=== PATIENT | male | born 1945 | race Caucasian/White ===

== ENCOUNTER 2017-09-03 02:19 | Outpatient (CLI) | payer MEDICARE ==
[~2017-09-03 02:19] MED LIST: ALEN70TA48 PO; AMLO10TA5 PO; CHOL200035 PO; INSU100V36 SQ; LEVO150T73 PO; LISI40TA4 PO; SIMV20TA5 PO; UBIQ100C3 PO
== END 2017-09-03 23:59 | disposition home or self-care (01) ==
LOC: DIABETIC 02:19
PROVIDERS: ATTEND Specialist
DX: E11.65 Type 2 diabetes mellitus with hyperglycemia (principal); I10 Essential (primary) hypertension
CPT/HCPCS: G0108

== ENCOUNTER 2017-09-08 10:44 | Day surgery (SDC) | payer MEDICARE | END 2017-09-08 12:15 | disposition home or self-care (01) | LOC: WOUND CARE 10:44 | PROVIDERS: ATTEND Surgery | DX: T81.89XD Other complications of procedures, not elsewhere classified, subsequent encounter (principal); L98.421 Non-pressure chronic ulcer of back limited to breakdown of skin; I10 Essential (primary) hypertension; Z72.89 Other problems related to lifestyle; Y83.8 Other surgical procedures as the cause of abnormal reaction of the patient, or of later complication, without mention of misadventure at the time of the procedure | CPT/HCPCS: 11042; 36416; 82948; A6021; A6212; 88305 ==

== ENCOUNTER 2017-09-17 10:23 | Day surgery (SDC) | payer MEDICARE ==
[2017-09-17] MEDS ORDERED: LIDOcaine 2% 5ml jelly ONE (11:18)
== END 2017-09-17 11:45 | disposition home or self-care (01) ==
LOC: WOUND CARE 10:23
PROVIDERS: ATTEND Surgery
DX: T81.89XD Other complications of procedures, not elsewhere classified, subsequent encounter (principal); L98.421 Non-pressure chronic ulcer of back limited to breakdown of skin; I10 Essential (primary) hypertension; H40.89 Other specified glaucoma; Z72.89 Other problems related to lifestyle; Y83.8 Other surgical procedures as the cause of abnormal reaction of the patient, or of later complication, without mention of misadventure at the time of the procedure
CPT/HCPCS: 11042; 36416; 82948; A6021; A6212

== ENCOUNTER 2017-09-24 10:46 | Day surgery (SDC) | payer MEDICARE ==
[2017-09-24] MEDS ORDERED: LIDOcaine 2% 5ml jelly ONE (11:16)
== END 2017-09-24 11:56 | disposition home or self-care (01) ==
LOC: WOUND CARE 10:46
PROVIDERS: ATTEND Surgery
DX: T81.89XD Other complications of procedures, not elsewhere classified, subsequent encounter (principal); E11.622 Type 2 diabetes mellitus with other skin ulcer; L98.421 Non-pressure chronic ulcer of back limited to breakdown of skin; E11.39 Type 2 diabetes mellitus with other diabetic ophthalmic complication; H40.89 Other specified glaucoma; I10 Essential (primary) hypertension; Z72.89 Other problems related to lifestyle; Z98.49 Cataract extraction status, unspecified eye; Y83.8 Other surgical procedures as the cause of abnormal reaction of the patient, or of later complication, without mention of misadventure at the time of the procedure
CPT/HCPCS: 17250; 36416; 82948; A6021; A6212

== ENCOUNTER 2017-10-01 11:07 | Day surgery (SDC) | payer MEDICARE ==
[2017-10-01] MEDS ORDERED: LIDOcaine 2% 5ml jelly ONE (11:23)
== END 2017-10-01 11:40 | disposition home or self-care (01) ==
LOC: WOUND CARE 11:07
PROVIDERS: ATTEND Surgery
DX: T81.89XD Other complications of procedures, not elsewhere classified, subsequent encounter (principal); E11.622 Type 2 diabetes mellitus with other skin ulcer; L98.421 Non-pressure chronic ulcer of back limited to breakdown of skin; E11.39 Type 2 diabetes mellitus with other diabetic ophthalmic complication; H40.89 Other specified glaucoma; I10 Essential (primary) hypertension; Z72.89 Other problems related to lifestyle; Z98.49 Cataract extraction status, unspecified eye; Y83.8 Other surgical procedures as the cause of abnormal reaction of the patient, or of later complication, without mention of misadventure at the time of the procedure
CPT/HCPCS: 11042; 36416; 82948; A6212

== ENCOUNTER 2017-10-09 10:37 | Day surgery (SDC) | payer MEDICARE ==
[2017-10-09] MEDS ORDERED: LIDOcaine 2% 5ml jelly ONE (11:28)
== END 2017-10-09 11:58 | disposition home or self-care (01) ==
LOC: WOUND CARE 10:37
PROVIDERS: ATTEND Surgery
DX: T81.89XD Other complications of procedures, not elsewhere classified, subsequent encounter (principal); E11.622 Type 2 diabetes mellitus with other skin ulcer; L98.421 Non-pressure chronic ulcer of back limited to breakdown of skin; E11.39 Type 2 diabetes mellitus with other diabetic ophthalmic complication; H40.89 Other specified glaucoma; I10 Essential (primary) hypertension; Z72.89 Other problems related to lifestyle; Z98.49 Cataract extraction status, unspecified eye; Y83.8 Other surgical procedures as the cause of abnormal reaction of the patient, or of later complication, without mention of misadventure at the time of the procedure
CPT/HCPCS: 11042; 36416; 82948; A6021; A6212

== ENCOUNTER 2017-10-15 10:35 | Day surgery (SDC) | payer MEDICARE ==
[2017-10-15] MEDS: LIDOcaine 2% 5ml jelly ONE (12:11)
== END 2017-10-15 11:50 | disposition home or self-care (01) ==
LOC: WOUND CARE 10:35
PROVIDERS: ATTEND Surgery
DX: T81.89XD Other complications of procedures, not elsewhere classified, subsequent encounter (principal); E11.622 Type 2 diabetes mellitus with other skin ulcer; L98.421 Non-pressure chronic ulcer of back limited to breakdown of skin; E11.39 Type 2 diabetes mellitus with other diabetic ophthalmic complication; H40.89 Other specified glaucoma; I10 Essential (primary) hypertension; Z72.89 Other problems related to lifestyle; Z98.49 Cataract extraction status, unspecified eye; Y83.8 Other surgical procedures as the cause of abnormal reaction of the patient, or of later complication, without mention of misadventure at the time of the procedure
CPT/HCPCS: 36416; 82948; 97597; A6021; A6212

== ENCOUNTER 2017-10-23 10:35 | Day surgery (SDC) | payer MEDICARE ==
[2017-10-23] MEDS ORDERED: LIDOcaine 2% 5ml jelly ONE (10:55)
== END 2017-10-23 11:44 | disposition home or self-care (01) ==
LOC: WOUND CARE 10:35
PROVIDERS: ATTEND Surgery
DX: T81.89XD Other complications of procedures, not elsewhere classified, subsequent encounter (principal); E11.622 Type 2 diabetes mellitus with other skin ulcer; L98.421 Non-pressure chronic ulcer of back limited to breakdown of skin; E11.39 Type 2 diabetes mellitus with other diabetic ophthalmic complication; H40.89 Other specified glaucoma; I10 Essential (primary) hypertension; Z72.89 Other problems related to lifestyle; Z98.49 Cataract extraction status, unspecified eye; Y83.8 Other surgical procedures as the cause of abnormal reaction of the patient, or of later complication, without mention of misadventure at the time of the procedure
CPT/HCPCS: 11042; 36416; 82948; A6021; A6212

== ENCOUNTER 2017-10-29 10:29 | Day surgery (SDC) | payer MEDICARE | END 2017-10-29 11:27 | disposition home or self-care (01) | LOC: WOUND CARE 10:29 | PROVIDERS: ATTEND Surgery | DX: T81.89XD Other complications of procedures, not elsewhere classified, subsequent encounter (principal); E11.622 Type 2 diabetes mellitus with other skin ulcer; L98.421 Non-pressure chronic ulcer of back limited to breakdown of skin; E11.39 Type 2 diabetes mellitus with other diabetic ophthalmic complication; H40.89 Other specified glaucoma; I10 Essential (primary) hypertension; Z72.89 Other problems related to lifestyle; Z98.49 Cataract extraction status, unspecified eye; Y83.8 Other surgical procedures as the cause of abnormal reaction of the patient, or of later complication, without mention of misadventure at the time of the procedure | CPT/HCPCS: 11042; 36416; 82948; A6021; A6212 ==

== ENCOUNTER 2017-11-05 10:34 | Day surgery (SDC) | payer MEDICARE ==
[2017-11-05] MEDS ORDERED: LIDOcaine 2% 5ml jelly ONE (11:49)
== END 2017-11-05 12:12 | disposition home or self-care (01) ==
LOC: WOUND CARE 10:34
PROVIDERS: ATTEND Surgery
DX: T81.89XD Other complications of procedures, not elsewhere classified, subsequent encounter (principal); E11.622 Type 2 diabetes mellitus with other skin ulcer; L98.421 Non-pressure chronic ulcer of back limited to breakdown of skin; E11.39 Type 2 diabetes mellitus with other diabetic ophthalmic complication; H40.89 Other specified glaucoma; I10 Essential (primary) hypertension; Z72.89 Other problems related to lifestyle; Z98.49 Cataract extraction status, unspecified eye; Y83.8 Other surgical procedures as the cause of abnormal reaction of the patient, or of later complication, without mention of misadventure at the time of the procedure
CPT/HCPCS: 36416; 82948; 97597; A6021; A6212

== ENCOUNTER 2017-11-12 10:40 | Day surgery (SDC) | payer MEDICARE ==
[2017-11-12] MEDS ORDERED: LIDOcaine 2% 5ml jelly ONE (11:26)
== END 2017-11-12 11:46 | disposition home or self-care (01) ==
LOC: WOUND CARE 10:40
PROVIDERS: ATTEND Surgery
DX: T81.89XD Other complications of procedures, not elsewhere classified, subsequent encounter (principal); E11.622 Type 2 diabetes mellitus with other skin ulcer; L98.421 Non-pressure chronic ulcer of back limited to breakdown of skin; E11.39 Type 2 diabetes mellitus with other diabetic ophthalmic complication; H40.89 Other specified glaucoma; I10 Essential (primary) hypertension; Z72.89 Other problems related to lifestyle; Z98.49 Cataract extraction status, unspecified eye; Y83.8 Other surgical procedures as the cause of abnormal reaction of the patient, or of later complication, without mention of misadventure at the time of the procedure
CPT/HCPCS: 36416; 82948; 97597; A6021; A6212

== ENCOUNTER 2017-11-20 10:30 | Outpatient (CLI) | payer MEDICARE ==
[2017-11-20] MEDS ORDERED: dextrose ORAL solution 15 GM/59 ML bottle ONE (11:07)
== END 2017-11-20 11:45 | disposition home or self-care (01) ==
LOC: WOUND CARE 10:30 → EDSTATUS 10:30 → WOUND CARE 11:45
PROVIDERS: ATTEND Surgery
DX: T81.89XD Other complications of procedures, not elsewhere classified, subsequent encounter (principal); E11.622 Type 2 diabetes mellitus with other skin ulcer; L98.421 Non-pressure chronic ulcer of back limited to breakdown of skin; E11.39 Type 2 diabetes mellitus with other diabetic ophthalmic complication; H40.89 Other specified glaucoma; I10 Essential (primary) hypertension; Z72.89 Other problems related to lifestyle; Z98.49 Cataract extraction status, unspecified eye; Y83.8 Other surgical procedures as the cause of abnormal reaction of the patient, or of later complication, without mention of misadventure at the time of the procedure
CPT/HCPCS: 36416; 82948; 99211; A6021; A6212

== ENCOUNTER 2017-11-25 02:18 | Outpatient (CLI) | payer MEDICARE | END 2017-11-25 23:59 | disposition home or self-care (01) | LOC: DIABETIC 02:18 | PROVIDERS: ATTEND Specialist | DX: E11.65 Type 2 diabetes mellitus with hyperglycemia (principal); I10 Essential (primary) hypertension | CPT/HCPCS: G0108 ==

== ENCOUNTER 2017-11-26 10:34 | Day surgery (SDC) | payer MEDICARE ==
[2017-11-26] MEDS ORDERED: LIDOcaine 2% 5ml jelly ONE (11:02)
== END 2017-11-26 11:46 | disposition home or self-care (01) ==
LOC: WOUND CARE 10:34
PROVIDERS: ATTEND Surgery
DX: T81.89XD Other complications of procedures, not elsewhere classified, subsequent encounter (principal); E11.622 Type 2 diabetes mellitus with other skin ulcer; L98.421 Non-pressure chronic ulcer of back limited to breakdown of skin; E11.39 Type 2 diabetes mellitus with other diabetic ophthalmic complication; H40.89 Other specified glaucoma; I10 Essential (primary) hypertension; Z72.89 Other problems related to lifestyle; Z98.49 Cataract extraction status, unspecified eye; Y83.8 Other surgical procedures as the cause of abnormal reaction of the patient, or of later complication, without mention of misadventure at the time of the procedure
CPT/HCPCS: 11042; 36416; 82948; A6021; A6212

== ENCOUNTER 2017-12-17 10:40 | Day surgery (SDC) | payer MEDICARE ==
[2017-12-17] MEDS ORDERED: LIDOcaine 2% 5ml jelly ONE (11:06)
[2017-12-17] MEDS ORDERED: dextrose ORAL solution 15 GM/59 ML bottle ONE (11:06)
== END 2017-12-17 11:56 | disposition home or self-care (01) ==
LOC: WOUND CARE 10:40
PROVIDERS: ATTEND Surgery
DX: T81.89XD Other complications of procedures, not elsewhere classified, subsequent encounter (principal); E11.622 Type 2 diabetes mellitus with other skin ulcer; L98.421 Non-pressure chronic ulcer of back limited to breakdown of skin; E11.39 Type 2 diabetes mellitus with other diabetic ophthalmic complication; H40.89 Other specified glaucoma; I10 Essential (primary) hypertension; Z98.49 Cataract extraction status, unspecified eye; Y83.2 Surgical operation with anastomosis, bypass or graft as the cause of abnormal reaction of the patient, or of later complication, without mention of misadventure at the time of the procedure
CPT/HCPCS: 15271; 36416; 82948; A6209; A6222; Q4131; A6250

== ENCOUNTER 2017-12-24 10:35 | Day surgery (SDC) | payer MEDICARE | END 2017-12-24 11:27 | disposition home or self-care (01) | LOC: WOUND CARE 10:35 | PROVIDERS: ATTEND Surgery | DX: T81.89XD Other complications of procedures, not elsewhere classified, subsequent encounter (principal); E11.622 Type 2 diabetes mellitus with other skin ulcer; L98.422 Non-pressure chronic ulcer of back with fat layer exposed; E11.39 Type 2 diabetes mellitus with other diabetic ophthalmic complication; H40.89 Other specified glaucoma; I10 Essential (primary) hypertension; E11.65 Type 2 diabetes mellitus with hyperglycemia; Z98.49 Cataract extraction status, unspecified eye; Y83.2 Surgical operation with anastomosis, bypass or graft as the cause of abnormal reaction of the patient, or of later complication, without mention of misadventure at the time of the procedure | CPT/HCPCS: 15271; 36416; 82948; A6212; Q4131 ==

== ENCOUNTER 2017-12-31 10:33 | Day surgery (SDC) | payer MEDICARE ==
[2017-12-31] MEDS ORDERED: LIDOcaine 2% 5ml jelly ONE (11:04)
== END 2017-12-31 11:37 | disposition home or self-care (01) ==
LOC: WOUND CARE 10:33
PROVIDERS: ATTEND Surgery
DX: T81.89XD Other complications of procedures, not elsewhere classified, subsequent encounter (principal); E11.622 Type 2 diabetes mellitus with other skin ulcer; L98.422 Non-pressure chronic ulcer of back with fat layer exposed; E11.39 Type 2 diabetes mellitus with other diabetic ophthalmic complication; H40.89 Other specified glaucoma; I10 Essential (primary) hypertension; E11.65 Type 2 diabetes mellitus with hyperglycemia; Z98.49 Cataract extraction status, unspecified eye; Y83.2 Surgical operation with anastomosis, bypass or graft as the cause of abnormal reaction of the patient, or of later complication, without mention of misadventure at the time of the procedure
CPT/HCPCS: 15271; 36416; 82948; A6209; A6222; Q4131; A6250

== ENCOUNTER 2018-01-05 12:30 | Outpatient (CLI) | payer MEDICARE | END 2018-01-05 14:00 | disposition home or self-care (01) | LOC: EDSTATUS 12:30 → WOUND CARE 12:30 | PROVIDERS: ATTEND Surgery | DX: T81.89XD Other complications of procedures, not elsewhere classified, subsequent encounter (principal); E11.622 Type 2 diabetes mellitus with other skin ulcer; L98.422 Non-pressure chronic ulcer of back with fat layer exposed; E11.39 Type 2 diabetes mellitus with other diabetic ophthalmic complication; H40.89 Other specified glaucoma; I10 Essential (primary) hypertension; E11.65 Type 2 diabetes mellitus with hyperglycemia; Z98.49 Cataract extraction status, unspecified eye; Y83.2 Surgical operation with anastomosis, bypass or graft as the cause of abnormal reaction of the patient, or of later complication, without mention of misadventure at the time of the procedure | CPT/HCPCS: 36416; 82948; 99215; A6206; A6212 ==

== ENCOUNTER 2018-01-08 10:37 | Day surgery (SDC) | payer MEDICARE | END 2018-01-08 11:59 | disposition home or self-care (01) | LOC: WOUND CARE 10:37 | PROVIDERS: ATTEND Surgery | DX: T81.89XD Other complications of procedures, not elsewhere classified, subsequent encounter (principal); E11.622 Type 2 diabetes mellitus with other skin ulcer; L98.422 Non-pressure chronic ulcer of back with fat layer exposed; E11.39 Type 2 diabetes mellitus with other diabetic ophthalmic complication; H40.89 Other specified glaucoma; I10 Essential (primary) hypertension; E11.65 Type 2 diabetes mellitus with hyperglycemia; Z98.49 Cataract extraction status, unspecified eye; Y83.8 Other surgical procedures as the cause of abnormal reaction of the patient, or of later complication, without mention of misadventure at the time of the procedure | CPT/HCPCS: 15271; 36416; 82948; A6209; A6222; Q4131; A6250 ==

== ENCOUNTER 2018-01-14 10:45 | Outpatient (CLI) | payer MEDICARE ==
[2018-01-14] MEDS ORDERED: LIDOcaine 2% 5ml jelly ONE (11:33)
== END 2018-01-14 11:54 | disposition home or self-care (01) ==
LOC: WOUND CARE 10:45
PROVIDERS: ATTEND Surgery
DX: T81.89XD Other complications of procedures, not elsewhere classified, subsequent encounter (principal); E11.622 Type 2 diabetes mellitus with other skin ulcer; L98.422 Non-pressure chronic ulcer of back with fat layer exposed; E11.39 Type 2 diabetes mellitus with other diabetic ophthalmic complication; E11.65 Type 2 diabetes mellitus with hyperglycemia; H40.89 Other specified glaucoma; I10 Essential (primary) hypertension; Z98.49 Cataract extraction status, unspecified eye; Y83.8 Other surgical procedures as the cause of abnormal reaction of the patient, or of later complication, without mention of misadventure at the time of the procedure
CPT/HCPCS: 36416; 82948; 99214; A6021; A6212; A6222

== ENCOUNTER 2018-01-21 10:34 | Day surgery (SDC) | payer MEDICARE ==
[2018-01-21] MEDS ORDERED: LIDOcaine 2% 5ml jelly ONE (11:20)
== END 2018-01-21 11:58 | disposition home or self-care (01) ==
LOC: WOUND CARE 10:34
PROVIDERS: ATTEND Surgery
DX: T81.89XD Other complications of procedures, not elsewhere classified, subsequent encounter (principal); E11.622 Type 2 diabetes mellitus with other skin ulcer; L98.422 Non-pressure chronic ulcer of back with fat layer exposed; E11.39 Type 2 diabetes mellitus with other diabetic ophthalmic complication; E11.65 Type 2 diabetes mellitus with hyperglycemia; H40.89 Other specified glaucoma; I10 Essential (primary) hypertension; Z98.49 Cataract extraction status, unspecified eye; Y83.8 Other surgical procedures as the cause of abnormal reaction of the patient, or of later complication, without mention of misadventure at the time of the procedure
CPT/HCPCS: 36416; 82948; 97597; A6021; A6206; A6212

== ENCOUNTER 2018-01-28 10:39 | Day surgery (SDC) | payer MEDICARE ==
[2018-01-28] MEDS ORDERED: LIDOcaine 2% 5ml jelly ONE (11:25)
== END 2018-01-28 12:10 | disposition home or self-care (01) ==
LOC: WOUND CARE 10:39
PROVIDERS: ATTEND Surgery
DX: T81.89XD Other complications of procedures, not elsewhere classified, subsequent encounter (principal); E11.622 Type 2 diabetes mellitus with other skin ulcer; L98.422 Non-pressure chronic ulcer of back with fat layer exposed; L97.211 Non-pressure chronic ulcer of right calf limited to breakdown of skin; L97.221 Non-pressure chronic ulcer of left calf limited to breakdown of skin; E11.39 Type 2 diabetes mellitus with other diabetic ophthalmic complication; E11.65 Type 2 diabetes mellitus with hyperglycemia; H40.89 Other specified glaucoma; I10 Essential (primary) hypertension; Z98.49 Cataract extraction status, unspecified eye; Y83.8 Other surgical procedures as the cause of abnormal reaction of the patient, or of later complication, without mention of misadventure at the time of the procedure
CPT/HCPCS: 15271; 36416; 82948; 97597; A6021; A6206; A6209; A6222; A6446; Q4131; A6250

== ENCOUNTER 2018-02-05 10:30 | Day surgery (SDC) | payer MEDICARE | END 2018-02-05 11:44 | disposition home or self-care (01) | LOC: WOUND CARE 10:30 | PROVIDERS: ATTEND Surgery | DX: T81.89XD Other complications of procedures, not elsewhere classified, subsequent encounter (principal); E11.622 Type 2 diabetes mellitus with other skin ulcer; L98.422 Non-pressure chronic ulcer of back with fat layer exposed; E11.39 Type 2 diabetes mellitus with other diabetic ophthalmic complication; E11.65 Type 2 diabetes mellitus with hyperglycemia; H40.89 Other specified glaucoma; I10 Essential (primary) hypertension; Z98.49 Cataract extraction status, unspecified eye; Y83.8 Other surgical procedures as the cause of abnormal reaction of the patient, or of later complication, without mention of misadventure at the time of the procedure | CPT/HCPCS: 36416; 82948; 97597; A6021; A6212 ==

== ENCOUNTER 2018-02-12 10:41 | Day surgery (SDC) | payer MEDICARE ==
[2018-02-12] MEDS: LIDOcaine 2% 5ml jelly ONE (12:05)
== END 2018-02-12 12:10 | disposition home or self-care (01) ==
LOC: WOUND CARE 10:41
PROVIDERS: ATTEND Surgery
DX: T81.89XD Other complications of procedures, not elsewhere classified, subsequent encounter (principal); E11.622 Type 2 diabetes mellitus with other skin ulcer; L98.422 Non-pressure chronic ulcer of back with fat layer exposed; E11.39 Type 2 diabetes mellitus with other diabetic ophthalmic complication; E11.65 Type 2 diabetes mellitus with hyperglycemia; H40.89 Other specified glaucoma; I10 Essential (primary) hypertension; Z98.49 Cataract extraction status, unspecified eye; Y83.8 Other surgical procedures as the cause of abnormal reaction of the patient, or of later complication, without mention of misadventure at the time of the procedure
CPT/HCPCS: 15271; 36416; 82948; A6209; A6222; Q4131; A6250

== ENCOUNTER 2018-02-19 10:27 | Day surgery (SDC) | payer MEDICARE ==
[2018-02-19] MEDS ORDERED: LIDOcaine 2% 5ml jelly ONE (11:01)
== END 2018-02-19 11:40 | disposition home or self-care (01) ==
LOC: WOUND CARE 10:27
PROVIDERS: ATTEND Surgery
DX: T81.89XD Other complications of procedures, not elsewhere classified, subsequent encounter (principal); E11.622 Type 2 diabetes mellitus with other skin ulcer; L98.422 Non-pressure chronic ulcer of back with fat layer exposed; E11.39 Type 2 diabetes mellitus with other diabetic ophthalmic complication; E11.65 Type 2 diabetes mellitus with hyperglycemia; H40.89 Other specified glaucoma; I10 Essential (primary) hypertension; Z98.49 Cataract extraction status, unspecified eye; Y83.8 Other surgical procedures as the cause of abnormal reaction of the patient, or of later complication, without mention of misadventure at the time of the procedure
CPT/HCPCS: 15271; 36416; 82948; A6209; A6222; Q4131; A6250

== ENCOUNTER 2018-02-26 10:28 | Day surgery (SDC) | payer MEDICARE ==
[2018-02-26] MEDS ORDERED: hydrocortisone 1% cream 28gm TP ONE (12:18)
== END 2018-02-26 12:28 | disposition home or self-care (01) ==
LOC: WOUND CARE 10:28
PROVIDERS: ATTEND Surgery
DX: T81.89XD Other complications of procedures, not elsewhere classified, subsequent encounter (principal); E11.622 Type 2 diabetes mellitus with other skin ulcer; L98.422 Non-pressure chronic ulcer of back with fat layer exposed; E11.39 Type 2 diabetes mellitus with other diabetic ophthalmic complication; E11.65 Type 2 diabetes mellitus with hyperglycemia; H40.89 Other specified glaucoma; I10 Essential (primary) hypertension; Z98.49 Cataract extraction status, unspecified eye; Y83.8 Other surgical procedures as the cause of abnormal reaction of the patient, or of later complication, without mention of misadventure at the time of the procedure
CPT/HCPCS: 15271; 36416; 82948; A6206; A6212; Q4131

== ENCOUNTER 2018-03-03 04:23 | Outpatient (CLI) | payer MEDICARE | END 2018-03-03 23:59 | disposition home or self-care (01) | LOC: DIABETIC 04:23 | PROVIDERS: ATTEND Specialist | DX: E11.9 Type 2 diabetes mellitus without complications (principal) | CPT/HCPCS: G0108 ==

== ENCOUNTER 2018-03-05 10:37 | Outpatient (CLI) | payer MEDICARE | END 2018-03-05 11:26 | disposition home or self-care (01) | LOC: WOUND CARE 10:37 | PROVIDERS: ATTEND Surgery | DX: T81.89XD Other complications of procedures, not elsewhere classified, subsequent encounter (principal); E11.622 Type 2 diabetes mellitus with other skin ulcer; L98.422 Non-pressure chronic ulcer of back with fat layer exposed; E11.39 Type 2 diabetes mellitus with other diabetic ophthalmic complication; E11.65 Type 2 diabetes mellitus with hyperglycemia; H40.89 Other specified glaucoma; I10 Essential (primary) hypertension; Z98.49 Cataract extraction status, unspecified eye; Y83.8 Other surgical procedures as the cause of abnormal reaction of the patient, or of later complication, without mention of misadventure at the time of the procedure | CPT/HCPCS: 36416; 82948; 99211; A6206; A6213 ==

== ENCOUNTER 2018-03-11 10:24 | Day surgery (SDC) | payer MEDICARE ==
[2018-03-11] MEDS ORDERED: LIDOcaine 2% 5ml jelly ONE (11:04)
== END 2018-03-11 11:30 | disposition home or self-care (01) ==
LOC: WOUND CARE 10:24
PROVIDERS: ATTEND Surgery
DX: T81.89XD Other complications of procedures, not elsewhere classified, subsequent encounter (principal); E11.622 Type 2 diabetes mellitus with other skin ulcer; L98.422 Non-pressure chronic ulcer of back with fat layer exposed; E11.39 Type 2 diabetes mellitus with other diabetic ophthalmic complication; E11.65 Type 2 diabetes mellitus with hyperglycemia; H40.89 Other specified glaucoma; I10 Essential (primary) hypertension; Z98.49 Cataract extraction status, unspecified eye; Y83.8 Other surgical procedures as the cause of abnormal reaction of the patient, or of later complication, without mention of misadventure at the time of the procedure
CPT/HCPCS: 36416; 82948; 97597; A6021; A6212

== ENCOUNTER 2018-03-20 10:33 | Day surgery (SDC) | payer MEDICARE | END 2018-03-20 11:38 | disposition home or self-care (01) | LOC: WOUND CARE 10:33 | PROVIDERS: ATTEND Surgery | DX: T81.89XD Other complications of procedures, not elsewhere classified, subsequent encounter (principal); E11.622 Type 2 diabetes mellitus with other skin ulcer; L98.422 Non-pressure chronic ulcer of back with fat layer exposed; E11.39 Type 2 diabetes mellitus with other diabetic ophthalmic complication; E11.65 Type 2 diabetes mellitus with hyperglycemia; H40.89 Other specified glaucoma; I10 Essential (primary) hypertension; Z98.49 Cataract extraction status, unspecified eye; Y83.8 Other surgical procedures as the cause of abnormal reaction of the patient, or of later complication, without mention of misadventure at the time of the procedure | CPT/HCPCS: 15271; 36416; 82948; A6209; A6222; Q4131; A6250 ==

== ENCOUNTER 2018-03-26 10:38 | Day surgery (SDC) | payer MEDICARE | END 2018-03-26 11:26 | disposition home or self-care (01) | LOC: WOUND CARE 10:38 | PROVIDERS: ATTEND Surgery | DX: T81.89XD Other complications of procedures, not elsewhere classified, subsequent encounter (principal); E11.622 Type 2 diabetes mellitus with other skin ulcer; L98.422 Non-pressure chronic ulcer of back with fat layer exposed; E11.39 Type 2 diabetes mellitus with other diabetic ophthalmic complication; E11.65 Type 2 diabetes mellitus with hyperglycemia; H40.89 Other specified glaucoma; I10 Essential (primary) hypertension; Z98.49 Cataract extraction status, unspecified eye; Y83.8 Other surgical procedures as the cause of abnormal reaction of the patient, or of later complication, without mention of misadventure at the time of the procedure | CPT/HCPCS: 11042; 36416; 82948; A6021; A6212 ==

== ENCOUNTER 2018-04-09 10:40 | Day surgery (SDC) | payer MEDICARE ==
[~2018-04-09] VITALS: Ht 170.2 cm; Wt 63.5 kg
[2018-04-09] MEDS: LIDOcaine 2% 5ml jelly ONE (11:48)
== END 2018-04-09 13:56 | disposition home or self-care (01) ==
LOC: WOUND CARE 10:40
PROVIDERS: ATTEND Surgery
DX: T81.89XD Other complications of procedures, not elsewhere classified, subsequent encounter (principal); E11.622 Type 2 diabetes mellitus with other skin ulcer; L98.422 Non-pressure chronic ulcer of back with fat layer exposed; E11.39 Type 2 diabetes mellitus with other diabetic ophthalmic complication; E11.65 Type 2 diabetes mellitus with hyperglycemia; H40.89 Other specified glaucoma; I10 Essential (primary) hypertension; Z98.49 Cataract extraction status, unspecified eye; Y83.8 Other surgical procedures as the cause of abnormal reaction of the patient, or of later complication, without mention of misadventure at the time of the procedure
CPT/HCPCS: 15271; 36416; A6209; A6222; Q4131; A6250

== ENCOUNTER 2018-04-17 09:35 | Outpatient (CLI) | payer MEDICARE | END 2018-04-17 11:18 | disposition home or self-care (01) | LOC: WOUND CARE 09:35 → EDSTATUS 10:00 → WOUND CARE 11:18 | PROVIDERS: ATTEND Surgery | DX: T81.89XD Other complications of procedures, not elsewhere classified, subsequent encounter (principal); E11.622 Type 2 diabetes mellitus with other skin ulcer; L98.422 Non-pressure chronic ulcer of back with fat layer exposed; E11.39 Type 2 diabetes mellitus with other diabetic ophthalmic complication; E11.65 Type 2 diabetes mellitus with hyperglycemia; H40.89 Other specified glaucoma; I10 Essential (primary) hypertension; Z98.49 Cataract extraction status, unspecified eye; Y83.8 Other surgical procedures as the cause of abnormal reaction of the patient, or of later complication, without mention of misadventure at the time of the procedure | CPT/HCPCS: 36416; 72131; 82948; 99215; A6206; A6212 ==

== ENCOUNTER 2018-04-22 10:40 | Day surgery (SDC) | payer MEDICARE ==
[2018-04-22] MEDS ORDERED: LIDOcaine 2% 5ml jelly ONE (11:16)
== END 2018-04-22 11:40 | disposition home or self-care (01) ==
LOC: WOUND CARE 10:40
PROVIDERS: ATTEND Surgery
DX: T81.89XD Other complications of procedures, not elsewhere classified, subsequent encounter (principal); E11.622 Type 2 diabetes mellitus with other skin ulcer; L98.422 Non-pressure chronic ulcer of back with fat layer exposed; E11.39 Type 2 diabetes mellitus with other diabetic ophthalmic complication; E11.65 Type 2 diabetes mellitus with hyperglycemia; H40.89 Other specified glaucoma; I10 Essential (primary) hypertension; Z98.49 Cataract extraction status, unspecified eye; Y83.8 Other surgical procedures as the cause of abnormal reaction of the patient, or of later complication, without mention of misadventure at the time of the procedure
CPT/HCPCS: 11042; 36416; 82948; A6021; A6212

== ENCOUNTER 2018-04-29 10:40 | Day surgery (SDC) | payer MEDICARE | END 2018-04-29 11:33 | disposition home or self-care (01) | LOC: WOUND CARE 10:40 | PROVIDERS: ATTEND Surgery | DX: T81.89XD Other complications of procedures, not elsewhere classified, subsequent encounter (principal); E11.622 Type 2 diabetes mellitus with other skin ulcer; L98.422 Non-pressure chronic ulcer of back with fat layer exposed; L98.412 Non-pressure chronic ulcer of buttock with fat layer exposed; E11.39 Type 2 diabetes mellitus with other diabetic ophthalmic complication; E11.65 Type 2 diabetes mellitus with hyperglycemia; H40.89 Other specified glaucoma; I10 Essential (primary) hypertension; Z98.49 Cataract extraction status, unspecified eye; Y83.8 Other surgical procedures as the cause of abnormal reaction of the patient, or of later complication, without mention of misadventure at the time of the procedure | CPT/HCPCS: 97597; A6021; A6212 ==

== ENCOUNTER 2018-05-13 10:42 | Day surgery (SDC) | payer MEDICARE | END 2018-05-13 11:28 | disposition home or self-care (01) | LOC: WOUND CARE 10:42 | PROVIDERS: ATTEND Surgery | DX: T81.89XD Other complications of procedures, not elsewhere classified, subsequent encounter (principal); E11.622 Type 2 diabetes mellitus with other skin ulcer; L98.421 Non-pressure chronic ulcer of back limited to breakdown of skin; L98.412 Non-pressure chronic ulcer of buttock with fat layer exposed; E11.39 Type 2 diabetes mellitus with other diabetic ophthalmic complication; E11.65 Type 2 diabetes mellitus with hyperglycemia; H40.89 Other specified glaucoma; I10 Essential (primary) hypertension; Z98.49 Cataract extraction status, unspecified eye; Y83.8 Other surgical procedures as the cause of abnormal reaction of the patient, or of later complication, without mention of misadventure at the time of the procedure | CPT/HCPCS: 11042; A6021; A6212 ==

== ENCOUNTER 2018-05-21 11:00 | Day surgery (SDC) | payer MEDICARE ==
[2018-05-21] MEDS ORDERED: LIDOcaine/PRILOcaine 5gm cream TP ONE (12:06)
[2018-05-21] MEDS ORDERED: Silvasorb gel 45gm tube TP ONE (12:42)
== END 2018-05-21 12:48 | disposition home or self-care (01) ==
LOC: WOUND CARE 11:00
PROVIDERS: ATTEND Surgery
DX: T81.89XD Other complications of procedures, not elsewhere classified, subsequent encounter (principal); E11.622 Type 2 diabetes mellitus with other skin ulcer; L98.421 Non-pressure chronic ulcer of back limited to breakdown of skin; E11.39 Type 2 diabetes mellitus with other diabetic ophthalmic complication; E11.65 Type 2 diabetes mellitus with hyperglycemia; H40.89 Other specified glaucoma; I10 Essential (primary) hypertension; Z98.49 Cataract extraction status, unspecified eye; Y83.8 Other surgical procedures as the cause of abnormal reaction of the patient, or of later complication, without mention of misadventure at the time of the procedure
CPT/HCPCS: 11042; A6212

== ENCOUNTER 2018-05-29 10:05 | Day surgery (SDC) | payer MEDICARE ==
[2018-05-29] MEDS ORDERED: LIDOcaine/PRILOcaine 5gm cream TP ONE (11:08)
== END 2018-05-29 11:23 | disposition home or self-care (01) ==
LOC: WOUND CARE 10:05
PROVIDERS: ATTEND Surgery
DX: T81.89XD Other complications of procedures, not elsewhere classified, subsequent encounter (principal); E11.622 Type 2 diabetes mellitus with other skin ulcer; L98.422 Non-pressure chronic ulcer of back with fat layer exposed; E11.39 Type 2 diabetes mellitus with other diabetic ophthalmic complication; E11.65 Type 2 diabetes mellitus with hyperglycemia; H40.89 Other specified glaucoma; I10 Essential (primary) hypertension; Z98.49 Cataract extraction status, unspecified eye; Y83.8 Other surgical procedures as the cause of abnormal reaction of the patient, or of later complication, without mention of misadventure at the time of the procedure
CPT/HCPCS: 11042; A6021; A6212

== ENCOUNTER 2018-06-10 09:48 | Day surgery (SDC) | payer MEDICARE | END 2018-06-10 11:01 | disposition home or self-care (01) | LOC: WOUND CARE 09:48 | PROVIDERS: ATTEND Surgery | DX: T81.89XD Other complications of procedures, not elsewhere classified, subsequent encounter (principal); E11.622 Type 2 diabetes mellitus with other skin ulcer; L98.422 Non-pressure chronic ulcer of back with fat layer exposed; E11.39 Type 2 diabetes mellitus with other diabetic ophthalmic complication; E11.65 Type 2 diabetes mellitus with hyperglycemia; H40.89 Other specified glaucoma; I10 Essential (primary) hypertension; Z98.49 Cataract extraction status, unspecified eye; Y83.8 Other surgical procedures as the cause of abnormal reaction of the patient, or of later complication, without mention of misadventure at the time of the procedure | CPT/HCPCS: 15271; A6209; A6213; A6222; Q4133; A6250 ==

== ENCOUNTER 2018-06-16 04:23 | Outpatient (CLI) | payer MEDICARE | END 2018-06-16 23:59 | disposition home or self-care (01) | LOC: DIABETIC 04:23 | PROVIDERS: ATTEND Specialist | DX: E10.65 Type 1 diabetes mellitus with hyperglycemia (principal); I10 Essential (primary) hypertension; Z96.642 Presence of left artificial hip joint | CPT/HCPCS: G0108 ==

== ENCOUNTER 2018-06-24 10:41 | Outpatient (CLI) | payer MEDICARE | END 2018-06-24 11:47 | disposition home or self-care (01) | LOC: WOUND CARE 10:41 | PROVIDERS: ATTEND Surgery | DX: T81.89XD Other complications of procedures, not elsewhere classified, subsequent encounter (principal); E11.622 Type 2 diabetes mellitus with other skin ulcer; L98.422 Non-pressure chronic ulcer of back with fat layer exposed; E11.39 Type 2 diabetes mellitus with other diabetic ophthalmic complication; E11.65 Type 2 diabetes mellitus with hyperglycemia; H40.89 Other specified glaucoma; I10 Essential (primary) hypertension; Z98.49 Cataract extraction status, unspecified eye; Y83.8 Other surgical procedures as the cause of abnormal reaction of the patient, or of later complication, without mention of misadventure at the time of the procedure | CPT/HCPCS: 99214 ==

== ENCOUNTER 2018-07-08 10:44 | Outpatient (CLI) | payer MEDICARE | END 2018-07-08 11:28 | disposition home or self-care (01) | LOC: WOUND CARE 10:44 | PROVIDERS: ATTEND Surgery | DX: T81.89XD Other complications of procedures, not elsewhere classified, subsequent encounter (principal); E11.622 Type 2 diabetes mellitus with other skin ulcer; L98.422 Non-pressure chronic ulcer of back with fat layer exposed; E11.39 Type 2 diabetes mellitus with other diabetic ophthalmic complication; E11.65 Type 2 diabetes mellitus with hyperglycemia; H40.89 Other specified glaucoma; I10 Essential (primary) hypertension; Z98.49 Cataract extraction status, unspecified eye; Y83.8 Other surgical procedures as the cause of abnormal reaction of the patient, or of later complication, without mention of misadventure at the time of the procedure | CPT/HCPCS: 99215 ==

== ENCOUNTER 2018-09-15 05:08 | Outpatient (CLI) | payer MEDICARE ==
[~2018-09-15 05:08] MED LIST changes: -ALEN70TA48 PO; +ALEN70TA60 PO
== END 2018-09-15 23:59 | disposition home or self-care (01) ==
LOC: DIABETIC 05:08
PROVIDERS: ATTEND Specialist
DX: E10.65 Type 1 diabetes mellitus with hyperglycemia (principal); I10 Essential (primary) hypertension; Z79.4 Long term (current) use of insulin
CPT/HCPCS: G0108